=== PATIENT | male | born 1945 | race Caucasian/White ===

== ENCOUNTER → 2019-02-22 09:07 | Outpatient (CLI) | payer OTHER, SELFPAY ==
--- NOTE | 2019-02-22 | DI.NM.S_ITS ---
PROCEDURE: NM BONE SCAN WHOLE BODY RADIOPHARMACEUTICAL: 19.7 mCi Tc-99m MDP IV. INDICATIONS: RIGHT HIP PAIN TECHNIQUE: Delayed whole-body scintigrams were obtained approximately 3-4 hours after intravenous injection of radiotracer. Anterior and posterior views were acquired from vertex to feet. Additional left and right oblique views of the pelvis and hips were obtained. COMPARISON: None. FINDINGS: There is right hip arthroplasty. Low-level increased activity around right hip prosthesis is indistinguishable from postsurgical change. No scintigraphic findings to suggest listhesis loosening or infection. No lesions are identified in skull, sternum, clavicles, scapulae, ribs, bony pelvis, and visualized shafts of the long bones. There is low level increased uptake in cervical, thoracic and lumbar spine with distribution indistinguishable from degenerative disc and facet disease. There are foci of increased periarticular activity involving shoulders, sternoclavicular joints, wrists, hands, left hip, knees, ankles and feet, compatible with degenerative/arthritic changes. IMPRESSION: 1. Right hip arthroplasty with expected postsurgical change. 2. Degenerative/arthritic changes in spine and multiple peripheral joints. Dictated by: Hal Varela M.D. on 02/22/2019 at 17:30 Approved by: Hal Varela M.D. on 02/22/2019 at 18:30
== END ==
PROVIDERS: PCP Family Medicine; Visit Provider Orthopaedic Surgery
DX: M25.551 Pain in right hip (principal); M15.0 Primary generalized (osteo)arthritis; M47.9 Spondylosis, unspecified; Z96.641 Presence of right artificial hip joint
CPT/HCPCS: 78306; A9503

== ENCOUNTER → 2019-08-02 09:37 | Outpatient (CLI) | payer OTHER, SELFPAY ==
--- NOTE | 2019-08-02 | DI.MRI.S_ITS ---
PROCEDURE: MR LUMBAR SPINE WO CON INDICATIONS: Pain in right hip TECHNIQUE: Noncontrast sagittal T1 spin echo and T2 fast echo, sagittal STIR, axial T1 and T2 fast spin echo through the lumbar spine. In cases with scoliosis, additional coronal T2 fast spin echo may be performed. COMPARISON: None. FINDINGS: Image quality: Excellent. Alignment and Curvature: No plain films are available for comparison, for numbering purposes. Thus, for the purposes of this examination, 5 lumbar type vertebral bodies will be presumed, as denoted on the montage panel. This should be confirmed and correlated with plain films, prior to any lumbar spinal intervention. There is loss of normal lumbar lordosis. There is mild grade 1 retrolisthesis of L3 on L4. Mild grade 1 anterolisthesis of L4 on L5. Bone Marrow: Marrow is of normal overall signal. No acute vertebral body compression fractures. There is mild reactive signal within the endplates adjacent to the L2-L3 and L3-L4 intervertebral discs. Spinal Cord: Conus medullaris terminates at the L1-L2 disc space level. Visualized cord demonstrates normal signal and size. Paraspinous Soft Tissues: No paravertebral masses. L1-L2: Moderate disc desiccation. Mild diffuse disc bulge. Mild facet and ligament flavum hypertrophy. Mild epidural lipomatosis. Mild canal stenosis. No foraminal stenosis. L2-L3: Mild disc height loss. Moderate disc desiccation. Mild diffuse disc bulge. Mild facet and ligament flavum hypertrophy. Mild epidural lipomatosis. Mild canal stenosis. Mild right greater than left foraminal stenosis. L3-L4: Severe disc height loss and desiccation. Mild diffuse disc bulge. Mild facet and ligament flavum hypertrophy. Mild epidural lipomatosis. Mild canal stenosis. Moderate right and mild left foraminal stenosis. L4-L5: Moderate disc height loss and desiccation. Mild diffuse disc bulge. Moderate facet hypertrophy. Mild ligamentum flavum hypertrophy. Moderate canal stenosis. Moderate subarticular foraminal stenosis bilaterally. L5-S1: Moderate disc desiccation. Mild diffuse disc bulge. Mild bilateral facet hypertrophy. Mild canal stenosis. Mild subarticular foraminal stenosis bilaterally. IMPRESSION: 1. Multilevel degenerative disc and facet disease, as well as ligamentum flavum hypertrophy and epidural lipomatosis. 2. 5 lumbar type vertebral bodies were presumed for the current report. Plain films of the lumbar spine are recommended for confirmation, prior to any lumbar spinal intervention. 3. Multilevel canal stenoses, worst at L4-L5 where there is moderate canal stenosis. 5. Multilevel foraminal stenoses, worst at L3-L4 on the right, and L4-L5 bilaterally where there are moderate foraminal stenoses present. Dictated by: Carlos Patel M.D. on 08/02/2019 at 11:39 Approved by: Carlos Patel M.D. on 08/02/2019 at 11:43
== END ==
PROVIDERS: PCP Family Medicine; Visit Provider Orthopaedic Surgery
DX: M25.551 Pain in right hip (principal); M51.36 Other intervertebral disc degeneration, lumbar region; M51.37 Other intervertebral disc degeneration, lumbosacral region; M48.061 Spinal stenosis, lumbar region without neurogenic claudication; M48.07 Spinal stenosis, lumbosacral region; E88.2 Lipomatosis, not elsewhere classified
CPT/HCPCS: 72148

== ENCOUNTER → 2020-12-24 13:05 | Outpatient (CLI) | payer OTHER, SELFPAY ==
[2020-12-24 15:33] LABS: COVID19 -Nasal RAPID Negative (Negative)
== END ==
PROVIDERS: PCP Internal Medicine; Visit Provider Physical Medicine & Rehabilitation
DX: Z20.822 Contact with and (suspected) exposure to COVID-19 (principal)
CPT/HCPCS: 87635; C9803

== ENCOUNTER 2020-12-25 13:44 | Outpatient (CLI) | payer OTHER, SELFPAY ==
[2020-12-25] VITALS (8 sets, daily range): BP systolic 111–136; BP diastolic 56–75; PULSE 74–83; RESP 12–20; TEMP 36.3; O2SAT 95–97
--- NOTE | 2020-12-25 13:46 | DI.RAD.S_ITS ---
PROCEDURE: PAIN L/SI FACET INJ/BLK 1STL INDICATIONS: SPONDYLOSIS COMPARISON: None. FINDINGS: Fluoroscopic spot filming was performed to verify placement of spinal needles at the L3-L4, L4-L5 and L5-S1 level(s), as labeled on the films. Appropriate location(s) of the needle tip(s) was confirmed by injection of iodinated contrast. Dictated by: Aj Leblanc M.D. on 12/25/2020 at 16:05 Approved by: Aj Leblanc M.D. on 12/25/2020 at 16:08
[2020-12-25] MEDS: MIDAZOLAM 5 MG/5 ML VIAL IV (14:06)
[2020-12-25] MEDS: fentaNYL 100 MCG/2 ML INJ 50 MCG IV (14:06)
[2020-12-25] MEDS: IOPAMIDOL 15 ML VIAL 3 ML INJ (14:09)
[2020-12-25] MEDS: LIDOCAINE 1% 20 ML 10 ML INJ (14:09)
[2020-12-25] MEDS: BUPIVACAINE 0.5% (PF) VIAL 2 ML INJ (14:09)
[2020-12-25] MEDS: BETAMETHASONE 30 MG/5 ML MDV 12 MG INJ (14:10)
--- NOTE | 2020-12-25 14:20 | P.PCN_ITS ---
Date/Time/Diagnoses Date of procedure: 12/25/20 Time of procedure: 14:20 Pre-procedure diagnosis: 1. FACET ARTHROPATHY, 2. AXIAL LBP, 3. MULTILEVEL DDD Post-procedure diagnosis: same Procedure Notes Procedure: 1. FLUOROSCOPICALLY GUIDED CONTRAST CONTROLLED FACET JOINT INJECTIONS RIGHTL3/4, L4/5, L5/S1 Indications: Jamar is referred by Dr. Horan for treatment of Axial LBP Physician: Emmanuel Dean Total Fluoroscopy time (seconds): 8 Total sedation minutes: 10 Complications: none Procedure in detail & Post-procedure care: FINDINGS Multilevel Facet Arthropathy with Clinically significant axial LBP DESCRIPTION OF PROCEDURE Fluoroscopically guided, contrast-controlled right L4/5, L5/S1 facet joint injections. Following review of allergy and review of potential side effects and complications, including, but not necessarily limited to, infection, allergic reaction, local tissue breakdown, stroke, temporary or permanent nerve injury, paralysis, and possible , the patient indicated that the patient understood and agreed to proceed. An informed consent document was signed by the patient, witnessed by a nurse, and placed in the patient's chart. Additionally, other treatment options including medications, modalities, and physical therapy were reviewed with the patient. After review of previous anaesthesic history and IV conscious sedation the patient was deemed safe to proceed with today?s procedure with IV conscious sedation as ASA class II designation. Safety time-out was performed to confirm patient ID, procedure to be performed and site of procedure. IV sedation was accomplished with a combination of 2mg of Versed and 50mcg of Fentanyl was administered by the RN after DO order, titrated to patient comfort during the course of the procedure while the patient remained responsive to all verbal commands. In the prone position, following sterile prep and drape of the lumbar region, the posterior aspect of the right L3/4, L4/5, L5/S1 facet joints were identified fluoroscopically. The skin was anesthetized via a 25-gauge 1.5-inch needle with 1% lidocaine solution into the corresponding facet joints. At this point, a 22- gauge 3.5-inch spinal needle was atraumatically introduced and advanced under fluoroscopic guidance into the corresponding facet joints. Following negative aspiration, injections of approximately 0.2-cc of Isovue 200 confirmed interarticular placement without vascular uptake. Radiological data, including multiple fluoroscopic views of the lumbosacral spine, reveal a spinal needle at the right L3/4, L4/5, L5/S1 facet joints. Subsequent views show flow of contrast material both superiorly and inferiorly within the joint space without vascular or intrathecal uptake. At this point, a total of 0.5cc including a mixture of 0.25cc Marcaine and 0.25cc betamethasone was injected without complication into each of the corresponding facet joints. The procedure tolerated the procedure well without signs or symptoms of complications prior to transfer to the recovery area continued monitoring without incident. The patient was then transferred to the recovery area where they were observed for an appropriate period of time after the injection. The patient reported a VAS score of 7 prior to the procedure and a post-procedure VAS of 0. POST OP INSTRUCTIONS The patient was provided a Pain Log to continue to record their response to the target-specific procedure prior to follow-up visit with their referring physician. Additionally, specific post-injection care instructions and a contact number to our office were provided if concerns arise regarding possible complications associated with the procedure are suspected.
== END 2020-12-25 14:41 | disposition home or self-care (01) ==
LOC: RAD 13:44
PROVIDERS: PCP Internal Medicine; Referring Provider Physical Medicine & Rehabilitation; Visit Provider Physical Medicine & Rehabilitation
DX: M47.816 Spondylosis without myelopathy or radiculopathy, lumbar region (principal); M47.817 Spondylosis without myelopathy or radiculopathy, lumbosacral region; M51.36 Other intervertebral disc degeneration, lumbar region; M51.37 Other intervertebral disc degeneration, lumbosacral region; M54.5 Low back pain
CPT/HCPCS: 64493; 64494; 64495; 99152; J0702; J2250; J3010

== ENCOUNTER → 2021-03-13 12:46 | Outpatient (CLI) | payer OTHER, SELFPAY ==
--- NOTE | 2021-03-13 12:48 | DI.RAD.S_ITS ---
PROCEDURE: XR LUMBAR SPINE MIN 4V INDICATIONS: pain TECHNIQUE: 5 views of the lumbar spine acquired, including flexion and extension views. COMPARISON: None. FINDINGS: Bones: The lumbar spine has multilevel degenerative changes with anterior osteophytes at multiple levels. There is facet arthrosis spanning from L3 through S1. No vertebral body height loss. There is leftward curvature of the lumbar spine consistent with level scoliosis. Both sacroiliac joints have degenerative changes. The symphysis pubis and left hip have degenerative changes. Status post bipolar right hip replacement. Disc space narrowing is seen at L1-2, L2-3, and L3-4. Grade 1 anterolisthesis of L4-5 likely due to facet arthrosis. Soft tissues: Overlying bowel gas pattern is normal. No suspicious soft tissue calcifications. IMPRESSION: Multilevel lumbar spondylosis as above. Dictated by: Pasquale Medina M.D. on 03/13/2021 at 14:26 Approved by: Pasquale Medina M.D. on 03/13/2021 at 14:28
--- NOTE | 2021-03-13 15:18 | DI.RAD.S_ITS ---
PROCEDURE: XR HUMERUS LT 2V INDICATIONS: left humeral pain with hx of Fx TECHNIQUE: 2 views of the humerus were acquired. COMPARISON: None. FINDINGS: Bones: Prior fracture deformity of the mid left humeral shaft. No acute fracture. Degenerative change at the shoulder. No suspicious bony lesions. Soft tissues: No suspicious soft tissue calcifications. IMPRESSION: Fracture deformity of the mid left humeral shaft. Dictated by: Armen Delgado M.D. on 03/13/2021 at 15:49 Approved by: Armen Delgado M.D. on 03/13/2021 at 15:51
== END ==
PROVIDERS: PCP Internal Medicine; Referring Provider Physical Medicine & Rehabilitation; Visit Provider Physical Medicine & Rehabilitation
DX: S42.302A Unspecified fracture of shaft of humerus, left arm, initial encounter for closed fracture (principal); M43.16 Spondylolisthesis, lumbar region; M47.816 Spondylosis without myelopathy or radiculopathy, lumbar region; M51.9 Unspecified thoracic, thoracolumbar and lumbosacral intervertebral disc disorder; M99.79 Connective tissue and disc stenosis of intervertebral foramina of abdomen and other regions; M17.0 Bilateral primary osteoarthritis of knee
CPT/HCPCS: 72110; 73060; 99215

== ENCOUNTER → 2021-08-23 11:06 | Outpatient (CLI) | payer OTHER, SELFPAY ==
--- NOTE | 2021-08-23 11:12 | DI.CT.S_ITS ---
PROCEDURE: CT UE LT WO CON INDICATIONS: Primary osteoarthritis, left shoulder TECHNIQUE: Noncontrast 1-1.5 mm thick sections acquired from the acromioclavicular joint to the inferior scapula, with coronal and sagittal reformatting. COMPARISON: [facility], CR, XR SHOULDER 2+ VIEWS LEFT, 07/04/2021, 10:56. FINDINGS: Image quality: Excellent. Bones: No acute, displaced fracture or dislocation. A nutrient foramen is seen in the mid clavicle. Mild degeneration of the AC joint. Moderate to advanced joint space narrowing of the glenohumeral articulation with large osteophytes about the articulation. An intra-articular body is seen within the inferior axillary recess. Remote fracture deformity of the mid humerus. Soft tissues: No significant abnormality. IMPRESSION: Glenohumeral joint arthrosis as detailed above. Dictated by: Bashir Chaves M.D. on 08/23/2021 at 12:41 Approved by: Bahsir Chaves M.D. on 08/23/2021 at 12:45
== END ==
PROVIDERS: PCP Internal Medicine; Referring Provider Orthopaedic Surgery; Visit Provider Orthopaedic Surgery
DX: M19.012 Primary osteoarthritis, left shoulder (principal)
CPT/HCPCS: 73200

== ENCOUNTER → 2021-08-26 10:21 | Outpatient (CLI) | payer OTHER, SELFPAY ==
[2021-08-26 11:58] LABS: COVID19 -Nasal RAPID Negative (Negative)
== END ==
PROVIDERS: PCP Internal Medicine; Visit Provider Physical Medicine & Rehabilitation
DX: Z20.822 Contact with and (suspected) exposure to COVID-19 (principal)
CPT/HCPCS: 87635; C9803

== ENCOUNTER 2021-08-27 10:17 | Outpatient (CLI) | payer OTHER, SELFPAY ==
[2021-08-27] VITALS (8 sets, daily range): BP systolic 110–135; BP diastolic 56–69; PULSE 64–75; RESP 14–20; TEMP 36.6; O2SAT 94–99
--- NOTE | 2021-08-27 10:20 | DI.RAD.S_ITS ---
PROCEDURE: PAIN L/SI FACET INJ/BLK 1STL INDICATIONS: SPONDYLOSIS COMPARISON: [facility], CR, XR LUMBAR SPINE MIN 4V, 03/13/2021, 12:42. FINDINGS: Fluoroscopic spot filming was performed to verify placement of spinal needles at the L3, L4, L5 and S1 level(s), as labeled on the films. Appropriate location(s) of the needle tip(s) was confirmed by injection of iodinated contrast. IMPRESSION: Fluoroscopy for pain management. Dictated by: Hal Varela M.D. on 08/27/2021 at 11:31 Approved by: Hal Varela M.D. on 08/27/2021 at 11:31
[2021-08-27] MEDS: fentaNYL 100 MCG/2 ML INJ 50 MCG IV (10:40)
[2021-08-27] MEDS: MIDAZOLAM 5 MG/5 ML VIAL IV (10:40)
[2021-08-27] MEDS: BUPIVACAINE 0.5% (PF) VIAL 5 ML INJ (10:42)
[2021-08-27] MEDS: IOPAMIDOL 15 ML VIAL 3 ML INJ (10:43)
[2021-08-27] MEDS: LIDOCAINE 1% 20 ML 10 ML INJ (10:43)
--- NOTE | 2021-08-27 10:54 | P.PCN_ITS ---
Date/Time/Diagnoses Date of procedure: 08/27/21 Time of procedure: 10:54 Pre-procedure diagnosis: 1. FACET ARTHROPATHY Post-procedure diagnosis: same Procedure Notes Procedure: 1. Right L3, L4, L5 and S1 MB BLOCKS Indications: Jamar is referred by Dr. Horan for treatment of Right Axial LBP. Physician: Emmanuel Dean Total Fluoroscopy time (seconds): 7 Total sedation minutes: 10 Complications: none Procedure in detail & Post-procedure care: DESCRIPTION OF PROCEDURE Fluoroscopically guided, contrast-controlled right L3, L4, L5 and S1 medial branch blocks with 0.5cc of 0.5% Marcaine. Following review of allergy and review of potential side effects and complications, including, but not necessarily limited to, infection, allergic reaction, local tissue breakdown, nerve injury, paralysis, stroke and possible , the patient indicated that the patient understood and agreed to proceed. An informed consent document was signed by the patient, witnessed by a nurse, and placed in the patient's chart. After review of previous anaesthesic history and IV conscious sedation the patient was deemed safe to proceed with today?s procedure with IV conscious sedation as ASA class II designation. Safety time-out was performed to confirm patient ID, procedure to be performed and site of procedure. IV sedation was accomplished with a combination of 3mg of Versed and 50mcg of Fentanyl was administered by the RN after DO order, titrated to patient comfort during the course of the procedure while the patient remained responsive to all verbal commands In the prone position, following sterile prep and drape of the lumbar region, the right L3, L4, L5 and S1 anatomical location of the medial branch of the dorsal ramus was identified fluoroscopically. Subsequently an anesthetic skin wheal using 1% lidocaine solution was initiated at each of the anatomical spots. Subsequently then a 22-gauge 3.5-inch spinal needle was atraumatically introduced and advanced under fluoroscopic guidance at each of the corresponding sites at the right L3, L4, L5 and S1 MB. After negative aspiration, 0.2 cc of Isovue 200 was injected, confirming placement without vascular or intrathecal uptake. Subsequently then 0.5 cc of 0.5% Marcaine solution was injected at each of the corresponding sites at the right L3, L4, L5 and S1 medial branch locations. The patient tolerated the procedure well without signs or symptoms of complications. The procedure tolerated the procedure well without signs or symptoms of complications prior to transfer to the recovery area continued monitoring without incident. Post-procedure, the patient was monitored initiating provocative activities to measure the amount of relief from block of the facetogenic pain. The patient reported a VAS of 7 prior to the procedure and a post-procedure VAS of 1. It has been a pleasure to assist in the diagnostic and therapeutic care of your patient. POST OP INSTRUCTIONS The patient was provided with a Pain Log to complete over the next several hours and subsequent days prior to the patient's follow up with the ordering physician. If the patient has business management consultant relief to the solution applied, then they may be a candidate for medial branch rhizotomy. The patient is aware, was provided, once again, with a Pain Log and will follow up with the referring physician for review and clinical correlation.
== END 2021-08-27 11:17 | disposition home or self-care (01) ==
PROVIDERS: PCP Internal Medicine; Referring Provider Physical Medicine & Rehabilitation; Visit Provider Physical Medicine & Rehabilitation
DX: M47.816 Spondylosis without myelopathy or radiculopathy, lumbar region (principal); M47.817 Spondylosis without myelopathy or radiculopathy, lumbosacral region
CPT/HCPCS: 64493; 64494; 64495; 99152; J2250; J3010

== ENCOUNTER → 2022-06-16 11:26 | Outpatient (CLI) | payer OTHER, SELFPAY ==
[2022-06-16 12:44] LABS: COVID19 -Nasal RAPID Negative (Negative)
== END ==
PROVIDERS: PCP Internal Medicine; Referring Provider Orthopaedic Surgery; Visit Provider Orthopaedic Surgery
DX: Z20.822 Contact with and (suspected) exposure to COVID-19 (principal)
CPT/HCPCS: 87635

== ENCOUNTER 2022-06-18 08:57 | Day surgery (SDC) | payer OTHER, SELFPAY ==
[2022-06-11 08:24] VITALS: BMI 30.9
[2022-06-18] VITALS (11 sets, daily range): BP systolic 104–145; BP diastolic 53–75; PULSE 66–88; RESP 12–18; TEMP 35.9–36.6; O2SAT 94–98; BMI 30.9
--- NOTE | 2022-06-18 06:00 | DI.RAD.S_ITS ---
PROCEDURE: XR SHOULDER LT 1V INDICATIONS: TSA TECHNIQUE: 1 views of the shoulder were acquired. COMPARISON: None. FINDINGS: Bones: Patient is status post left total shoulder arthroplasty. Shoulder alignment is anatomic. No fractures or dislocations. No suspicious bony lesions. Visualized ribs appear intact. Soft tissues: Expected postsurgical changes are noted in lateral shoulder soft tissue. No suspicious soft tissue calcifications. IMPRESSION: Postop changes from left shoulder arthroplasty with anatomic shoulder alignment. Dictated by: Dave Durand M.D. on 06/18/2022 at 14:04 Approved by: Dave Durand M.D. on 06/18/2022 at 14:05
[2022-06-18] MEDS: ACETAMINOPHEN 325 MG TABLET 975 MG PO (09:48)
[2022-06-18] MEDS: PREGABALIN 75 MG CAPSULE PO (09:52)
[2022-06-18] MEDS: CELECOXIB 200 MG CAPSULE PO (09:52)
[2022-06-18] MEDS: LACTATED RINGERS 1,000 ML 42 ML IV ×2 (09:53→12:20)
--- NOTE | 2022-06-18 10:37 | PM.PREOP ---
Pre-operative Note COVID-19 COVID-19 status: Negative Result date/Date tested (Pos, Neg/Pending): 06/16/22 Interval Note History & Physical reviewed/Exam performed by Physician: Yes Changes to H&P: No
--- NOTE | 2022-06-18 11:15 | SUR.PREOP ---
Block start time 1050 . Monitoring initiated and maintained throughout procedure. Oxygen and medications given per anesthesiologist instructions. Time-out performed @ 10:55. Patient remained stable throughout procedure, no adverse reactions noted. Block end time 11:09.
[2022-06-18] MEDS: CEFAZOLIN 2 GM/100 ML PREMIX 100 ML IV ×2 (11:32→18:17)
[2022-06-18] MEDS: TRANEXAMIC ACID 1,000 MG VIAL 2000 MG INJ ×2 (11:43→13:01)
--- NOTE | 2022-06-18 11:49 | SUR.OPER ---
Beach chair with Ashwin/Art shoulder positioner. Lower body on padded OR bed. Head in foam padded head cradle, secured with straps. Non-operative arm secured <90 degrees abduction. Pillow under knees. Safety belt at thigh. Cloth tape over blanket over lower legs.
[2022-06-18] MEDS: BUPIVACAINE 0.5% W/ EPI (PF) 30 ML VIAL INJ (12:03)
[2022-06-18] MEDS: THROMBIN (RECOMBINANT) 5,000 UNIT VIAL 5000 UNIT TOP (12:03)
--- NOTE | 2022-06-18 13:40 | PM.OP.1 ---
Operative Date/Time/Diagnoses Date of procedure: 06/18/22 Time of procedure: 13:40 Pre-op diagnosis: Left shoulder osteoarthritis Post-op diagnosis: same Procedure & Clinicians Procedure: Left total shoulder replacement Same procedure as scheduled: Yes Indications: The patient has had progressively worsening left shoulder pain with radiographic changes consistent with arthritis. Non-operative management has failed and the patient has requested total shoulder replacement. The risks, benefits and alternatives to surgery were discussed with the patient prior to proceeding. Risks discussed included, but were not limited to, failure to relieve pain, stiffness, infection, nerve damage, deep venous thrombosis, pulmonary embolism, stroke, coma, heart attack, permanent paralysis and , as well as the potential need for eventual revision of the prosthetic. Surgeon: Troy Shirley Setter Cold Rolling Machine: Savage Shipley Click Yes if Unassisted: No Anesthesia Type: General, Peripheral nerve block and Local Operative Notes Findings: Severe osteophyte formation and end-stage osteoarthritis of the glenohumeral joint. Closure Type: primary Specimen(s): none sent Prosthetic devices, grafts, tissues, transplants, or devices: Implants used in this procedure manufactured by the [employer] and included a canal sparing prosthetic with a size 2 canal sparing stem, a 54 mm all polyethylene pegged E +glenoid and a 54 mm x 18 mm neutral humeral head. Applied: implant(s) Estimated Blood Loss (mL): 150 Blood products transfused: none Procedure in detail: The patient was seen in the pre-operative area, where the patient identified the left shoulder as the operative site and this was marked with my initials. The patient received pre-operative antibiotics, underwent an interscalene block, and was taken to the operating room and placed on the operative table in the supine position. After satisfactory anesthesia, a full ?time out? was performed. The patient was repositioned in the ?beach chair? position using a dedicated positioner. All pressure points were well padded, and the knees were slightly bent to prevent tension on the sciatic nerves. The left arm was prepared from the fingers to the base of the neck with ChloroPrep in the usual fashion and draped through sterile drapes. An approximately 15 cm incision was created, starting at the clavicle above the coracoid process and extended towards the deltoid insertion. The deltopectoral interval was used to access the shoulder. The cephalic vein was unfortunately damaged during the approach and ligated. A self retaining retractor was placed. The upper centimeter of the pectoralis major tendon was released. The ?three sisters? were identified and cauterized. The axillary nerve was palpated and protected throughout the case. The biceps was released from its groove and tenodesed over the top of the pectoralis major tendon. The subscapularis was released from the lesser tuberosity with a subscapularis peel and tagged for later repair. The shoulder was dislocated and a proximal humeral osteotomy was created using the insertion of the rotator cuff is a guide. We could not use a guide based on the deformity of the patient's humeral fracture which altered his retroversion and angulation. The large osteophyte was trimmed. The humeral head was sized and a guide pin placed through the center of a trial humeral head. The stepped Reamer was then used for the proximal humeral metaphysis. A size 2 broach was placed and a humeral protector attached to the broach. We then removed the self-retaining retractor and placed retractors to access the glenoid. The subscapularis was released with a ?360 degree release? with care being taken to protect the axillary nerve with the inferior portion of this procedure. The remnant of labrum and biceps stump were removed. The appropriate size reamer was chosen with the glenoid sizer, and the guide pin placed. The glenoid was appropriately reamed. The guide for the peripheral holes was used and the center hole enlarged. The trial glenoid was placed with good stability. We then cemented the final implant into place after irrigating the peg holes and drying them with thrombin-soaked Gelfoam. We returned our attention to the humerus, a trial humeral head was applied and a trial reduction performed. Stability was checked with 50% posterior translation with spontaneous reduction, external rotation at the side to 45? with the subscapularis held in the repaired position and internal rotation to approximately 70?.. This was felt to be satisfactory and the appropriate implants were opened. Five holes were drilled along the humeral osteotomy and #2 Ethibond sutures placed for eventual subscapularis repair. The humeral prosthetic was impacted into the humerus after threading the sutures through the anterior ring. The humeral head was applied when the stem was still slightly proud and impacted to both seat the head and fully seat the stem. The joint was relocated one final time. The joint was irrigated and the subscapularis repaired to the previously placed sutures using Minesh-Scott sutures. The top of the subscapularis was closed to the leading edge of the supraspinatus with a figure of 8 #2 Ethibond to close the rotator interval. The deltopectoral interval was closed with interrupted 0 Vicryl. The subcutaneous layer was closed with 3-0 Vicryl, and the skin with a running 3-0 V-Lock suture and Dermabond. An Aquacel Ag dressing was applied, the patient?s arm was placed in a sling, and the patient was taken to recovery having tolerated the procedure well. The services of Mr. Shipley were required as a skilled bilingual administrative assistant during this procedure to provide exposure especially during the glenoid implantation which is extremely difficult. This procedure could not have been completed without the services of a skilled bilingual administrative assistant. Complications: none Post-operative Condition: stable Disposition: PACU Plan for aftercare: The patient will be maintained in the hospital overnight. He will be allowed to use his arm in front of his body below shoulder level to lift 1-2 lb. Will then be advanced per a total shoulder replacement physical therapy protocol. Likely discharge tomorrow.
[2022-06-18] MEDS: HYDROMORPHONE 2 MG INJ IV (13:42)
[2022-06-18] MEDS: LACTATED RINGERS 1,000 ML 100 ML IV (14:48)
[2022-06-18] MEDS: OXYCODONE IR 5 MG TABLET PO ×3 (14:48→22:14)
--- NOTE | 2022-06-18 16:14 | PC.NURSE ---
Pt to room 209 via bed from PACU. Pt is awake and oriented. States pain is 4/10 to shoulder. Ice pack to left shoulder and sling in place. Oriented Pt to room, call light, bed controls, and tv controls. Gave Pt water to drink and a snack to eat. SCD's on and running. IVF infusing as ordered.
[2022-06-18] MEDS: ACETAMINOPHEN 325 MG TABLET 650 MG PO ×2 (17:12→23:58)
[2022-06-18] MEDS: ASPIRIN EC 81 MG TABLET PO (20:05)
[2022-06-18] MEDS: ATORVASTATIN 20 MG TABLET 10 MG PO (20:05)
[2022-06-18] MEDS: TAMSULOSIN 0.4 MG CAPSULE PO (20:05)
[2022-06-18] MEDS: DOCUSATE 100 MG CAPSULE PO (20:05)
--- NOTE | 2022-06-18 22:53 | PC.NURSE ---
Addendum entered by Luma Louis R.N. 06/19/22 05:57: Reports no numbness in left UE at this time and states it sure makes a difference with the block wearing off. Medicated with scheduled Tylenol + oxycodone and ice pack applied for complaint of 6/10 pain. Original Note: Patient is alert and oriented. Breath sounds CTA with RA sat of 97%. HRR. Denies nausea. BT hypoactive but states he has passed flatus. Has chronic urinary retention (takes Flomax) and urgency with urination but denies dysuria. Is able to turn himself in bed and gets out of bed with SBA. Aquacel dressing to left shoulder is CDI. Still has numbness in left UE especially in left thumb and forefinger; strong radial pulse and good capillary refill; has arm in sling. Wearing bilateral calf SCD's. Complained of 4/10 pain in left UE and was medicated with oxycodone at 2214 and has ice to area. Fall risk score is moderate and bed alarm is activated.
[2022-06-19 00:05] VITALS: BP 109/62; PULSE 74; RESP 17; TEMP 36.5; O2SAT 96
[2022-06-19] MEDS: LACTATED RINGERS 1,000 ML 100 ML IV ×2 (01:35→17:16)
[2022-06-19] MEDS: CEFAZOLIN 2 GM/100 ML PREMIX 100 ML IV (03:20)
[2022-06-19 03:45] VITALS: BP 101/52; PULSE 71; RESP 18; TEMP 36.3; O2SAT 93
[2022-06-19] MEDS: ACETAMINOPHEN 325 MG TABLET 650 MG PO ×4 (05:49→23:57)
[2022-06-19] MEDS: OXYCODONE IR 5 MG TABLET PO ×2 (05:49→17:54)
[2022-06-19] MEDS: PANTOPRAZOLE DR 20 MG TABLET PO (05:50)
[2022-06-19 06:09] LABS: Hematocrit 34.5 % (41-53)
[2022-06-19] MEDS: HYDROMORPHONE 2 MG TABLET PO (07:31)
--- NOTE | 2022-06-19 07:58 | PM.DS.1 ---
History of Present Illness History of Present Illness Date Patient Seen: 06/19/22 Time Patient Seen: 07:58 Chief complaint: Left Total shoulder Artroplasty Narrative: The history and physical is contained in the chart previously completed note. Please refer to that note for this information. Discharge Providers Provider Date of admission: June 18, 2022 Discharge Date: 06/19/22 Primary care physician: Sauarbh Horan MD Consults: 06/18/22 14:10 Consult to Discharge Planning Routine Comment: Consult to Physical Therapy Evaluate & Treat Comment: Physician Instructions: pendulums, PROM 90 FF, 0 ER, 0 abd, IR to body Discharge provider: Troy Shirley MD Summary Hospital Course Discharge Diagnosis: 1. Left shoulder osteoarthritis 2. Post hemorrhagic anemia Hospital Course: The patient was admitted to the hospital and taken directly to the operating room on June 18, 2022 where he underwent a left total shoulder replacement with no complications. On postoperative day 1 he had satisfactory pain control. He had a mild, anticipated post hemorrhagic anemia. At the time of this dictation it is anticipated he will be ready to go home later this morning. Status at Discharge Cognitive/behavioral status at discharge: at baseline, oriented Functional status at discharge: independent ambulation Overall status at discharge: patient is progressing back to baseline Time Spent with Patient Time spent: Less than 30 minutes Exam Vital Signs (past 8 hours): - 06/19/22 00:05 06/19/22 03:45 Temperature 97.7 F 97.3 F L Pulse Rate 74 71 Respiratory Rate 17 18 Blood Pressure 109/62 101/52 L Pulse Oximetry 96 93 Oxygen Flow Rate 0 0 Oxygen Delivery Method Room Air Oxygen Flow Rate 0 Narrative Exam Narrative: Left shoulder wound is dressed with no drainage on the bandage. Light touch is intact in the radial, ulnar, median, muscular cutaneous and axillary nerve distribution. He can extend his thumb, abduct his thumb, abduct his fingers and can fire his biceps and deltoid. 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 He has a mild, anticipated post hemorrhagic anemia which should resolve spontaneously. Plan of Treatment: Discharge today. Follow up at my office in 10-14 days. Prescriptions for oxycodone have been called in for pain control. He has been instructed to continue the use of Tylenol and Celebrex for additional pain relief and to use low-dose aspirin for DVT prophylaxis. Discharge Plan Discharge Plan Patient Disposition: Home Discharge orders & Medications Discharge Orders: Discharge (Order); Ordered 06/19/22 Ordered By: Troy Shirley Prescriptions: New aspirin 81 mg Tablet,Delayed Release (Dr/Ec) 81 mg PO BID Qty: 84 0RF oxycodone 5 mg Tablet 5 mg PO Q4H PRN (Reason: Pain, Moderate (4-6)) Qty: 40 0RF Continued tamsulosin 0.4 mg capsule 0.4 mg PO BEDTIME atorvastatin 10 mg tablet 10 mg PO BEDTIME cholecalciferol (vitamin D3) 50 mcg (2,000 unit) capsule 50 mcg PO DAILY acetaminophen [Tylenol Extra Strength] 500 mg tablet 1,000 mg PO Q6H PRN (Reason: Pain) Ultra CoQ10 75 mg capsule 75 mg PO DAILY omeprazole 20 mg capsule,delayed release(DR/EC) 20 mg PO DAILY Label Comments: Take one capsule by mouth once daily for indigestion celecoxib [Celebrex] 200 mg capsule 200 mg PO DAILY Qty: 90 2RF trazodone 50 mg tablet 50 mg PO BEDTIME MDD 2 tabs PO HS PRN (Reason: insomnia) Qty: 60 2RF Discontinued aspirin [Adult Low Dose Aspirin] 81 mg tablet,delayed release (DR/EC) 81 mg PO BEDTIME Follow up/Referrals: Saurabh Horan MD [Primary Care Provider] - Troy Shirley MD [Physician] - As previously scheduled (Follow up with Dr Shirley on 06/30/2022 @ 1:00 pm at [facility] office in [place].) Diet/Activity/Treatments Diet: Diet as Tolerated and Regular Activity: You may use your left arm in front of your body to lift 1-2 lb. You may do pendulum exercises. Cold/Heat Therapy: You may apply ice for 15 minutes every hour as needed to the left shoulder for pain control. Skin/Wound/Dressing Care Report to your healthcare provider any signs of infection, such as:: chills, fever, night sweats, increased pain, unusual drainage and unusual redness Dressing: Leave the dressing in place until your follow-up. You may shower with the dressing in place. If the central strip of the dressing becomes saturated with either water or blood, please call the office. Visit Report/Discharge Packet Instructions: DI for Shoulder Replacement Stand Alone Forms: Surgery Discharge Discharge Data Primary Care Provider: Saurabh Horan Attending Provider: Troy Shirley
[2022-06-19 08:25] VITALS: BP 113/59; PULSE 75; RESP 16; TEMP 35.9; O2SAT 94
[2022-06-19] MEDS: CHOLECALCIFEROL (VITAMIN D3) 1,000 UNIT TABLET 2000 UNIT PO (09:24)
[2022-06-19] MEDS: CELECOXIB 200 MG CAPSULE PO (09:24)
[2022-06-19] MEDS: DOCUSATE 100 MG CAPSULE PO ×2 (09:24→20:30)
[2022-06-19] MEDS: ASPIRIN EC 81 MG TABLET PO ×2 (09:24→20:30)
[2022-06-19] MEDS: OXYCODONE IR 10 MG TABLET PO ×3 (09:24→23:55)
[2022-06-19] MEDS: SODIUM CHLORIDE 0.9% FLUSH 10 ML IV (09:25)
--- NOTE | 2022-06-19 09:51 | PT.IIE ---
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 Enlarged prostate Facet arthropathy, lumbar 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 HLD (hyperlipidemia) Left humeral fracture Osteoarthritis Spondylolisthesis at L4-L5 level Physical Therapy Inpatient Evaluation/Re-Eval M1 PT/OT-IP Prior Functional Status Start: 06/19/22 12:47 Freq: NEEDED Status: Active Protocol: Document 06/19/22 09:51 AB (Rec: 06/19/22 12:58 AB [email or web address]) Medical Review Prior Functional Status Medical History Reviewed Yes Communication able to make needs known Mobility and Gait pt stated that he is independent with all mobilities and ambulation without AD Social History Household Members spouse Living Arrangements House Number of Floors (Floors) One Floor Number of Stairs To Enter/Railing? no steps to enter Home Environment High Toilet,Walk in Shower, Built-In Shower Seat Home Equipment Hand Held Shower M2 PT-IP Current Condition Start: 06/19/22 12:47 Freq: NEEDED Status: Active Protocol: Document 06/19/22 09:51 AB (Rec: 06/19/22 12:58 AB [email or web address]) Physical Therapy Current Condition Current Condition Evaluation Date 06/19/22 Treatment Diagnosis s/p L TSA; difficulty in walking Onset Date 06/18/22 M3 PT-IP Subjective Start: 06/19/22 12:47 Freq: NEEDED Status: Active Protocol: Document 06/19/22 09:51 AB (Rec: 06/19/22 12:58 AB [email or web address]) Subjective Physical Therapy Visit Type Type Initial Evaluation Visit Start Time 09:51 Visit Stop Time 10:18 Total Visit Minutes 27 Number of PRESCHOOL TEACHER AIDE Visits 0 Physical Therapy Visit Comments Patient Comments agreeable to do PT Therapy Pain Assessment Pain When Pain Assessed At Rest Pain Present Pain Present Pain Reported Location left shoulder Intensity 7 Scale Used Numeric (0 - 10) Pain Management Techniques Distraction,Modification of Treatment,Re-positioning, Timing of Activity with Medications M4 PT-IP Mobility and Gait Start: 06/19/22 12:47 Freq: NEEDED Status: Active Protocol: Document 06/19/22 09:51 AB (Rec: 06/19/22 12:58 AB [email or web address]) PT-Bed Mobility Assessment Supine to Sit Supine to Sit Standby Assistance Sit to Supine Sit to Supine Standby Assistance PT-Transfer Assessment Comments Mobility Comments educated pt on L shoulder precautions, weight bearing restriction, UE exercises. BP in supine 119/70 ID: [id number] completed supine to sit SBA. able to sit on EOB SBA. c/o dizziness. BP checked: 106/52 ID: [id number]. Pt sat on EOB for a few more minutes. Assisted pt with sling management and attempted UE exercises but pt continues to be dizzy. BP checked : 96/44 ID: [id number]. nurse aware. pt stated that he needs to lay back in bed due to dizziness. completed sit to supine SBA.BP checked: 98/ 43 ID : [id number]. positioned pt in bed. call light and table placed withinn reach. BP checked again at end of PT session: 102/42 ID: [id number]. PT-Balance Assessment Sitting Balance and Reactions Static Sitting Balance Ability Normal Dynamic Sitting Balance Ability Normal M5 PT-IP Objective Assessments Start: 06/19/22 12:47 Freq: NEEDED Status: Active Protocol: Document 06/19/22 09:51 AB (Rec: 06/19/22 12:58 AB [email or web address]) Orientation Orientation/Cognition Level of Alertness Alert Orientation Name,Place,Situation Language Function Ability No Deficits Noted Safety Awareness Decreased Safety Awareness Memory Description Short Term Impaired Gross Range of Motion Lower Extremity ROM Assessment Within Functional Limits Strength Lower Extremity Strength Assessment Within Functional Limits Muscle Tone Muscle Tone WNL Yes M6 PT-IP Treatment Start: 06/19/22 12:47 Freq: NEEDED Status: Active Protocol: Document 06/19/22 09:51 AB (Rec: 06/19/22 12:58 AB [email or web address]) Physical Therapy Treatment Education Education Provided Precautions,Weight Bearing Status,Post-Op Packet,Safety M7 PT-IP Assessment and Plan Start: 06/19/22 12:47 Freq: NEEDED Status: Active Protocol: Document 06/19/22 09:51 AB (Rec: 06/19/22 12:58 AB [id number]) PT Summary Assessment and Plan Potential Rehabilitation Potential Good Status of Condition at Evaluation Evolving Summary Impairments Pain,ROM,Strength,Balance, Coordination,Sensation,Tone, Cognition,Bed Mobility, Transfers,Gait,Activity Tolerance Assessment Summary pt with decrease in BP in sitting on EOB : 96/44 and ID [id number] with c/o dizziness and unable to tolerate much activity. Pt plans to go home and spouse to assist. Caregiver training will be conducted when appropriate. will continue to assess progress. Goals Bed Mobility Goal Independent Transfer Goal Independent Gait Goal Independent Gait Distance 200 Days to Meet Goals 10 Frequency of Treatment Frequency Of Treatment Twice a Day Treatment Plan Physical Therapy Treatment Plan Bed Mobility Training,Transfer Training,Gait Training, Therapeutic Exercise,Balance Retraining,Post Op Education, Discharge Planning,Hot or Cold Pack,Neuromuscular Re-ed, Coordination Retraining,Manual Therapy Precautions Shoulder Precautions Sling,PROM,Internal Rotation to Body,No External Rotation, No Abduction,Forward Flexion to 90 degrees,Pendulums Weight Bearing Status Weight Bearing Status Non-Weight Bearing Allowed Weight Bearing Amount (enter % LUE NWB or #) (%) Recommendations To Nursing Amount of Assist Needed PT/OT Assist Only Discharge Recommendations PT Discharge Recommendations Home with Assistance, Outpatient PT Transportation Needs at Discharge Private Vehicle,Wheelchair/ Cabulance
[2022-06-19] MEDS: TRAMADOL 50 MG TABLET PO ×2 (11:35→21:58)
[2022-06-19 11:41] VITALS: BP 145/73; PULSE 62; RESP 16; TEMP 36.6; O2SAT 97
--- NOTE | 2022-06-19 13:40 | PT.IPTN ---
Current Diagnoses Primary osteoarthritis, left shoulder (06/18/22) Surgery Performed Operation Date: 06/18/22 11:00 Actual Procedures p Total Shoulder Arthroplasty(Left) - Troy Shirley MD Physical Therapy Treatment Note M2 PT-IP Current Condition Start: 06/19/22 12:47 Freq: NEEDED Status: Active Protocol: Document 06/19/22 09:51 AB (Rec: 06/19/22 12:58 AB [email or web address]) Physical Therapy Current Condition Current Condition Evaluation Date 06/19/22 Treatment Diagnosis s/p L TSA; difficulty in walking Onset Date 06/18/22 M3 PT-IP Subjective Start: 06/19/22 12:47 Freq: NEEDED Status: Active Protocol: Document 06/19/22 13:40 AB (Rec: 06/19/22 16:55 AB [email or web address]) Subjective Physical Therapy Visit Type Type Treatment Note Visit Start Time 13:40 Visit Stop Time 14:25 Total Visit Minutes 45 Number of PRIMARY SPECIAL EDUCATOR Visits 0 Physical Therapy Visit Comments Patient Comments agreeable to do PT Therapy Pain Assessment Pain When Pain Assessed At Rest Pain Present Pain Present Pain Reported Location left shoulder Intensity 6 Scale Used Numeric (0 - 10) Pain Management Techniques Apply Cold,Distraction, Modification of Treatment,Re- positioning,Timing of Activity with Medications M4 PT-IP Mobility and Gait Start: 06/19/22 12:47 Freq: NEEDED Status: Active Protocol: Document 06/19/22 13:40 AB (Rec: 06/19/22 16:55 AB [email or web address]) PT-Bed Mobility Assessment Supine to Sit Supine to Sit Standby Assistance PT-Transfer Assessment Sit to and From Stand Sit to and from Stand Contact Guard Assistance,1 Person Assistance,Use of Upper Extremities Equipment Transfer Assistive Device None,Gait Belt Orthotic/Prosthetic Devices or Brace: Yes Transfers Transfer Destination Toilet Transfer Technique ambulated Transfer Ability Level of Assist Contact Guard Assistance,1 Person Assistance,Use of Upper Extremities Comments Mobility Comments BP in supine: 132/74 KS: 90 bpm. spouse in room. reviewed shoulder precautions with pt and spouse. pt completed supine to sit SBA and cues for techniques. pt able to sit on EOB SBA. pt without c/o dizziness. educated spouse on sling management. pt completed elbow/hand/wrist exercises and attemped pendulum exercises but unable to do pendulum correctly. pt requested to use the toilet. ambulated without AD CGA and completed toileting CGA. pt ambulated towards the sink without AD and completed CGA. able to maintain standing while doing handwashing CGa. pt ambulated to chair and rested. educated spouse regarding sling management. Pt c/o dizziness. BP checked: 96/37 KS: 54. reclined pt on the chair. BP checked: 103/41 KS 56. Nurse informed. pt unable to tolerate further activities. caregiver training set up again at 9 am tomorrow with spouse to asssit. Gait Assessment Gait Gait Assistance Required: Contact Guard Assist Distance (Feet) 10 Able to Maintain Weight Bearing Status Yes During Gait Assistive Devices Assistive Device None,Gait Belt Orthotic/Prosthetic Devices or Brace: Yes Gait Deviations General Gait Pattern Antalgic,Decreased Stride Length,Decreased Feet Clearance Factors Limiting Gait Function Factors Limiting Gait Function Decreased Activity Tolerance, Decreased Strength,Difficulty Following Directions, Incoordination,Limited Range of Motion,Pain,Poor Balance, Poor Safety Awareness M5 PT-IP Objective Assessments Start: 06/19/22 12:47 Freq: NEEDED Status: Active Protocol: Document 06/19/22 09:51 AB (Rec: 06/19/22 12:58 AB [email or web address]) Orientation Orientation/Cognition Level of Alertness Alert Orientation Name,Place,Situation Language Function Ability No Deficits Noted Safety Awareness Decreased Safety Awareness Memory Description Short Term Impaired Gross Range of Motion Lower Extremity ROM Assessment Within Functional Limits Strength Lower Extremity Strength Assessment Within Functional Limits Muscle Tone Muscle Tone WNL Yes M6 PT-IP Treatment Start: 06/19/22 12:47 Freq: NEEDED Status: Active Protocol: Document 06/19/22 13:40 AB (Rec: 06/19/22 16:55 AB [email or web address]) Physical Therapy Treatment Exercises Exercises Shoulder Pendulums,Elbow Flexion/Extension,Wrist ROM, Hand ROM Education Education Provided Precautions,Weight Bearing Status,Safety M7 PT-IP Assessment and Plan Start: 06/19/22 12:47 Freq: NEEDED Status: Active Protocol: Document 06/19/22 13:40 AB (Rec: 06/19/22 16:55 AB [id number]) PT Summary Assessment and Plan Potential Rehabilitation Potential Fair Summary Impairments Pain,ROM,Strength,Balance, Coordination,Sensation,Tone, Cognition,Bed Mobility, Transfers,Gait,Activity Tolerance Progress Towards Goals Slow Progress due to Medical Issues,Slow Progress due to Activity Tolerance Assessment Summary pt requiring CGA with mobility but unable to tolerate much activity with decrease in BP from 132/74 to 96/37. due to this caregiver training not fully completed and requiring further training. set up another caregiver training for tomorrow at 9 am. will continue to assess progress. Goals Bed Mobility Goal Independent Transfer Goal Independent Gait Goal Independent Gait Distance 200 Days to Meet Goals 10 Frequency of Treatment Frequency Of Treatment Twice a Day Treatment Plan Physical Therapy Treatment Plan Bed Mobility Training,Transfer Training,Gait Training, Therapeutic Exercise,Balance Retraining,Post Op Education, Discharge Planning,Hot or Cold Pack,Neuromuscular Re-ed, Coordination Retraining,Manual Therapy Precautions Shoulder Precautions Sling,PROM,Internal Rotation to Body,No External Rotation, No Abduction,Forward Flexion to 90 degrees,Pendulums Weight Bearing Status Weight Bearing Status Non-Weight Bearing Allowed Weight Bearing Amount (enter % LUE NWB or #) (%) Recommendations To Nursing Amount of Assist Needed 1 Person Assist Discharge Recommendations PT Discharge Recommendations Home with Assistance, Outpatient PT Transportation Needs at Discharge Private Vehicle,Wheelchair/ Cabulance
--- NOTE | 2022-06-19 16:41 | PC.NURSE ---
Addendum entered by Kelley Khoury R.N. 06/19/22 16:58: Fluids restarted per KYLIE Johnson, and discharge order canceled for today. Original Note: While working with PT this am, patient experienced an episode of hypotension accompanied by diaphoresis and pallor. At this time, patient was unable to complete therapy adequate for discharge and PT stated she would try again in the afternoon. BP recovered quickly. Patient states that he thinks the hypotension was caused by pain. Medication regimen discussed with KYLIE Robin. Tramadol QID added to MAR and per patient, more effective than other medications for pain control. During PT session in afternoon, patient was able to proceed further with activities but still unable to complete caregiver training due to anther hypotensive episode. Again BP recovered quickly and PRN medication administered for pain control.
[2022-06-19 17:36] VITALS: BP 118/62; PULSE 84; RESP 16; TEMP 36.2; O2SAT 94
[2022-06-19 20:20] VITALS: BP 143/75; PULSE 77; RESP 17; TEMP 36.6; O2SAT 94
[2022-06-19] MEDS: ATORVASTATIN 20 MG TABLET 10 MG PO (20:30)
[2022-06-19] MEDS: TAMSULOSIN 0.4 MG CAPSULE PO (20:30)
[2022-06-20 05:51] VITALS: BP 113/58; PULSE 86; RESP 16; TEMP 36.5; O2SAT 92
[2022-06-20] MEDS: TRAMADOL 50 MG TABLET PO ×2 (05:51→09:10)
[2022-06-20] MEDS: ACETAMINOPHEN 325 MG TABLET 650 MG PO (05:51)
[2022-06-20] MEDS: PANTOPRAZOLE DR 20 MG TABLET PO (05:51)
--- NOTE | 2022-06-20 07:16 | PM.PNPO.1 ---
Subjective Subjective Date Patient Seen: 06/20/22 Time Patient Seen: 07:16 Interval history: Patient states he has significant pain yesterday and did not pass physical therapy. Patient is monitored throughout the day. Patient states he has quite a bit better this morning. Pain is [id number]. No fever or chills. No nausea or vomiting. Patient states his is home and available to assist him. Patient states he has wanting to go home today if safe for home environment. Exam Vital Signs (past 8 hours): - 06/20/22 05:51 Temperature 97.7 F Pulse Rate 86 Respiratory Rate 16 Blood Pressure 113/58 L Pulse Oximetry 92 Oxygen Flow Rate 0 Oxygen Delivery Method Room Air Oxygen Flow Rate 0 Narrative Exam Narrative: 76-year-old male resting comfortably in bed in no apparent distress. Left shoulder dressing is Clean, dry, intact.. Motor functions intact distally. Sensation grossly intact to light touch. Fingers are warm and dry. 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 HLD (hyperlipidemia) Left humeral fracture Osteoarthritis Spondylolisthesis at L4-L5 level Surgical History H/O Achilles tendon repair History of arthroscopy of right shoulder History of right hip replacement Hx of bilateral cataract extraction Hx of eye surgery Hx of hernia repair Hx of tonsillectomy Family History Father TIA (transient ischemic attack) Social History household members: spouse Smoking Status: Former smoker alcohol intake: current Assessment & Plan Post-op Postoperative Procedures: Procedures Operation Date: 06/18/22 11:00 Actual Procedure Side Surgeon p Total Shoulder Arthroplasty Left Troy Shirley MD Postoperative day: 2 Postoperative status: doing well Postoperative plan: routine post-op care Postoperative plan narrative: Multimodal pain management Mobilize with physical therapy Discharge home today after physical therapy if safe for home environment.
[2022-06-20 08:50] VITALS: BP 131/62; PULSE 66; RESP 18; TEMP 36.2; O2SAT 95
--- NOTE | 2022-06-20 09:05 | PT.IPTN ---
Current Diagnoses Primary osteoarthritis, left shoulder (06/18/22) Surgery Performed Operation Date: 06/18/22 11:00 Actual Procedures p Total Shoulder Arthroplasty(Left) - Troy Shirley MD Physical Therapy Treatment Note M2 PT-IP Current Condition Start: 06/19/22 12:47 Freq: NEEDED Status: Discharge Protocol: Document 06/19/22 09:51 AB (Rec: 06/19/22 12:58 AB [id number]) Physical Therapy Current Condition Current Condition Evaluation Date 06/19/22 Treatment Diagnosis s/p L TSA; difficulty in walking Onset Date 06/18/22 M3 PT-IP Subjective Start: 06/19/22 12:47 Freq: NEEDED Status: Discharge Protocol: Document 06/20/22 09:05 AB (Rec: 06/20/22 12:48 AB [email or web address]) Subjective Physical Therapy Visit Type Type Treatment Note Visit Start Time 09:05 Visit Stop Time 09:35 Total Visit Minutes 30 Number of HOSPICE VOLUNTEER COORDINATOR Visits 0 Therapy Pain Assessment Pain When Pain Assessed At Rest Location left shoulder Intensity 3 Scale Used Numeric (0 - 10) Pain Management Techniques Distraction,Modification of Treatment,Re-positioning, Timing of Activity with Medications M4 PT-IP Mobility and Gait Start: 06/19/22 12:47 Freq: NEEDED Status: Discharge Protocol: Document 06/20/22 09:05 AB (Rec: 06/20/22 12:48 AB [email or web address]) PT-Transfer Assessment Sit to and From Stand Sit to and from Stand Contact Guard Assistance,1 Person Assistance,Use of Upper Extremities Equipment Transfer Assistive Device None,Gait Belt Orthotic/Prosthetic Devices or Brace: Yes Transfer Ability Level of Assist Contact Guard Assistance,1 Person Assistance,Use of Upper Extremities Comments Mobility Comments pt sitting on the chair. stated that he will sleep on his recliner and does not want to do bed mobility training. caregiver training conducted. spouse was able to manage sling for pt. pt completed elbow/wrist/hand exercises. educated spouse on safety belt use and how to assist pt and spouse was able to put safety belt on pt. assisted pt with sit to stand and ambulation in room without AD CGA. pt sat back on the chair. call light and table placed within reach . pt and spouse without further concerns. Gait Assessment Gait Gait Assistance Required: Contact Guard Assist,1 Person Assist Distance (Feet) 35 Able to Maintain Weight Bearing Status Yes During Gait Assistive Devices Assistive Device None,Gait Belt Orthotic/Prosthetic Devices or Brace: Yes Gait Deviations General Gait Pattern Ataxic,Decreased Stride Length ,Decreased Feet Clearance,Step -to Gait,Wide Based Gait Factors Limiting Gait Function Factors Limiting Gait Function Decreased Activity Tolerance, Decreased Strength,Limited Range of Motion,Pain,Poor Balance,Poor Safety Awareness M5 PT-IP Objective Assessments Start: 06/19/22 12:47 Freq: NEEDED Status: Discharge Protocol: Document 06/19/22 09:51 AB (Rec: 06/19/22 12:58 AB [email or web address]) Orientation Orientation/Cognition Level of Alertness Alert Orientation Name,Place,Situation Language Function Ability No Deficits Noted Safety Awareness Decreased Safety Awareness Memory Description Short Term Impaired Gross Range of Motion Lower Extremity ROM Assessment Within Functional Limits Strength Lower Extremity Strength Assessment Within Functional Limits Muscle Tone Muscle Tone WNL Yes M6 PT-IP Treatment Start: 06/19/22 12:47 Freq: NEEDED Status: Discharge Protocol: Document 06/20/22 09:05 AB (Rec: 06/20/22 12:48 AB [email or web address]) Physical Therapy Treatment Exercises Exercises Elbow Flexion/Extension,Wrist ROM,Hand ROM Education Education Provided Precautions,Safety M7 PT-IP Assessment and Plan Start: 06/19/22 12:47 Freq: NEEDED Status: Discharge Protocol: Document 06/20/22 09:05 AB (Rec: 06/20/22 12:48 AB [email or web address]) PT Summary Assessment and Plan Potential Rehabilitation Potential Good Summary Impairments Pain,ROM,Strength,Balance, Coordination,Sensation,Tone, Cognition,Bed Mobility, Transfers,Gait,Activity Tolerance Progress Towards Goals Slow Progress due to Pain Assessment Summary caregiver training conducted and spouse is able to assist pt with mobility. pt may go home when medically stable Goals Bed Mobility Goal Independent Transfer Goal Independent Gait Goal Independent Gait Distance 200 Days to Meet Goals 10 Frequency of Treatment Frequency Of Treatment Twice a Day Treatment Plan Physical Therapy Treatment Plan Bed Mobility Training,Transfer Training,Gait Training, Therapeutic Exercise,Balance Retraining,Post Op Education, Discharge Planning,Hot or Cold Pack,Neuromuscular Re-ed, Coordination Retraining,Manual Therapy Precautions Shoulder Precautions Sling,PROM,Internal Rotation to Body,No External Rotation, No Abduction,Forward Flexion to 90 degrees,Pendulums Weight Bearing Status Weight Bearing Status Non-Weight Bearing Allowed Weight Bearing Amount (enter % LUE NWB or #) (%) Recommendations To Nursing Amount of Assist Needed 1 Person Assist Discharge Recommendations PT Discharge Recommendations Home with Assistance, Outpatient PT Transportation Needs at Discharge Private Vehicle,Wheelchair/ Cabulance
[2022-06-20] MEDS: ONDANSETRON 4 MG ODT PO (09:09)
[2022-06-20] MEDS: SODIUM CHLORIDE 0.9% FLUSH 10 ML IV (09:10)
[2022-06-20] MEDS: polyethylene glycoL 3350 17 GM POWD.PACK PO (09:10)
[2022-06-20] MEDS: DOCUSATE 100 MG CAPSULE PO (09:10)
[2022-06-20] MEDS: CHOLECALCIFEROL (VITAMIN D3) 1,000 UNIT TABLET 2000 UNIT PO (09:10)
[2022-06-20] MEDS: CELECOXIB 200 MG CAPSULE PO (09:10)
[2022-06-20] MEDS: ASPIRIN EC 81 MG TABLET PO (09:10)
== END 2022-06-20 10:17 | disposition home or self-care (01) ==
LOC: OR 09:00 → AC 09:01
PROVIDERS: PCP Internal Medicine; Referring Provider Orthopaedic Surgery; Visit Provider Orthopaedic Surgery
PROC: (CPT 23472; principal; 2022-06-18 11:00)
DX: M19.012 Primary osteoarthritis, left shoulder (principal); M25.712 Osteophyte, left shoulder; D50.0 Iron deficiency anemia secondary to blood loss (chronic)
CPT/HCPCS: 23472; 36415; 64450; 73020; 85014; 85018; 97110; 97162; 97530; C1776; J0690; J1170; J3010

== ENCOUNTER → 2023-12-09 09:46 | Outpatient (CLI) | payer OTHER, SELFPAY ==
[2022-09-29 14:50] VITALS: BMI 30.9
--- NOTE | 2023-12-09 09:49 | DI.NM.S_ITS ---
PROCEDURE: IN BONE SCAN WHOLE BODY RADIOPHARMACEUTICAL: 20 mCi Tc-99m MDP IV. INDICATIONS: Presence of right artificial hip joint TECHNIQUE: Delayed whole-body scintigrams were obtained approximately 3-4 hours after intravenous injection of radiotracer. Anterior and posterior views were acquired from vertex to feet. Additional left and right oblique views of the pelvis were obtained. COMPARISON: [facility] [place], [place], XR PELVIS WITH LATERAL HIP RIGHT, 05/20/2023, 13:38. [place], [place], IN BONE SCAN WHOLE BODY, 02/22/2019, 13:03. FINDINGS: Radiotracer excretion is seen in the urinary system. Right hip arthroplasty changes, with mild persistent uptake surrounding the hardware. Possible hardware also seen in the left shoulder. Scattered degenerative changes in the upper and lower extremities and spine. No focal suspicious uptake. More focal uptake, also likely degenerative, seen at the lumbosacral junction and cervical spine. IMPRESSION: Right hip arthroplasty changes, with similar mild uptake surrounding the hardware. If there is further concern, consider 3 phase imaging. Dictated by: Adam Gilman M.D. on 12/09/2023 at 16:04 Approved by: Adam Gilman M.D. on 12/09/2023 at 16:08
== END ==
LOC: NUCM 09:47
PROVIDERS: PCP Internal Medicine; Referring Provider Internal Medicine; Visit Provider Internal Medicine
DX: M25.551 Pain in right hip (principal); Z96.641 Presence of right artificial hip joint
CPT/HCPCS: 78306; A9503

== ENCOUNTER → 2024-01-08 11:12 | Outpatient (CLI) | payer OTHER, SELFPAY ==
[2022-09-29 14:50] VITALS: BMI 30.9
--- NOTE | 2024-01-08 | DI.MRI.S_ITS ---
PROCEDURE: MR HIP RT WO CON INDICATIONS: presence of artificial hip joint, Right HIP TENDONITIS TECHNIQUE: Noncontrast coronal T1 spin echo and STIR through the bony pelvis. Coronal and axial T2 fast spin echo with fat saturation, sagittal T1 spin echo, and oblique axial T2 fast spin echo with fat saturation through the hip. COMPARISON: [facility] [place], [place], XR PELVIS WITH LATERAL HIP RIGHT, 12/16/2023, 16:07. FINDINGS: Image quality: Excellent Bones: The visualized lower lumbar spine, sacrum, bilateral posterior iliac wing demonstrate normal marrow signal. Lower lumbar facet arthropathy. Status post right hip arthroplasty, creating artifacts, and limits evaluation. The left hip is well aligned. No acute fracture or dislocation of the left hip. No significant degenerative changes of the left hip. Right hip: The right iliopsoas, adductor, and hamstring tendons are unremarkable. The right gluteal minimus tendons is unremarkable. Low-grade tear of the right gluteal medius. Other soft tissue findings: Hypertrophic nodules are seen in the prostate. There is a 1.9 cm T2 hyperintense nodule in the subcutaneous fat of the left buttock, nonspecific. IMPRESSION: Status post right hip arthroplasty. Low-grade tear of the right gluteal medius at the greater trochanter insertion. Dictated by: Jacki Haley M.D. on 01/08/2024 at 20:17 Approved by: Jacki Haley M.D. on 01/08/2024 at 20:25
== END ==
PROVIDERS: PCP Internal Medicine; Referring Provider Orthopaedic Surgery; Visit Provider Orthopaedic Surgery
DX: S76.011A Strain of muscle, fascia and tendon of right hip, initial encounter (principal); M76.891 Other specified enthesopathies of right lower limb, excluding foot; Z96.641 Presence of right artificial hip joint
CPT/HCPCS: 73721

== ENCOUNTER 2024-02-09 14:17 | Outpatient (CLI) | payer OTHER, SELFPAY ==
[2022-09-29 14:50] VITALS: BMI 30.9
[2024-02-09] VITALS (10 sets, daily range): BP systolic 118–141; BP diastolic 58–90; PULSE 68–85; RESP 10–20; TEMP 36.6; O2SAT 93–98
--- NOTE | 2024-02-09 15:00 | DI.RAD.S_ITS ---
PROCEDURE: PAIN L/S FACET INJ/BLK 1ST JERI INDICATIONS: Bilateral L3-L4 and L5 medial branch block LA COMPARISON: None. FINDINGS: Fluoroscopic spot filming was performed to verify placement of spinal needles at the L3 through L5 level(s), as labeled on the films. Appropriate location(s) of the needle tip(s) was confirmed by injection of iodinated contrast. IMPRESSION: L3 through L5 needle and contrast placement bilaterally. Dictated by: Eunice Marti M.D. on 02/09/2024 at 20:55 Approved by: Eunice Marti M.D. on 02/09/2024 at 20:55
[2024-02-09] MEDS: MIDAZOLAM 2 MG/2 ML VIAL IV (15:39)
[2024-02-09] MEDS: iopamidoL 15 ML VIAL 3 ML INJ (15:44)
[2024-02-09] MEDS: BUPIVACAINE 0.5% (PF) 10 ML VIAL 5 ML INJ (15:44)
[2024-02-09] MEDS: LIDOCAINE 1% 20 ML 5 ML INJ (15:44)
[2024-02-09] MEDS: MIDAZOLAM 2 MG/2 ML VIAL 1 MG IV ×2 (15:49→15:53)
--- NOTE | 2024-02-09 16:02 | PM.PROC.IR.1 ---
Date/Time/Diagnoses Date of procedure: 02/09/24 Time of procedure: 16:02 Pre-procedure diagnosis: FACET ARTHROPATHY Post-procedure diagnosis: same Procedure Notes Procedure: 1. BILATERAL L3, L4 AND L5 DIAGNOSTIC MB BLOCKS Indications: Arthus is referred by Dr. Horan for treatment of Bilateral Axial LBP. Physician: Emmanuel Dean Total Fluoroscopy time (seconds): 14 Total sedation minutes: 18 Complications: none Procedure in detail & Post-procedure care: DESCRIPTION OF PROCEDURE Fluoroscopically guided, contrast-controlled bilateral L3, L4 AND L5 medial branch blocks with 0.5cc of 0.5% Marcaine. Following review of allergy and review of potential side effects and complications, including, but not necessarily limited to, infection, allergic reaction, local tissue breakdown, nerve injury, paralysis, stroke and possible , the patient indicated that the patient understood and agreed to proceed. An informed consent document was signed by the patient, witnessed by a nurse, and placed in the patient's chart. After review of previous anaesthesic history and IV conscious sedation the patient was deemed safe to proceed with today's procedure with IV conscious sedation as ASA class II designation. Safety time-out was performed to confirm patient ID, procedure to be performed and site of procedure. IV sedation was accomplished with a combination of 4mg of Versed was administered by the RN after DO order, titrated to patient comfort during the course of the procedure while the patient remained responsive to all verbal commands In the prone position, following sterile prep and drape of the lumbar region, the right L3, L4 AND L5 anatomical location of the medial branch of the dorsal ramus was identified fluoroscopically. Subsequently an anesthetic skin wheal using 1% lidocaine solution was initiated at each of the anatomical spots. Subsequently then a 22-gauge 3.5-inch spinal needle was atraumatically introduced and advanced under fluoroscopic guidance at each of the corresponding sites at the right L3, L4 and L5 MB. After negative aspiration, 0.2cc of Isovue 200 was injected, confirming placement without vascular or intrathecal uptake. Subsequently then 0.5cc of 0.5% Marcaine solution was injected at each of the corresponding sites at the right L3, L4 and L5 medial branch locations. The identical procedure was replicated on the left. The patient tolerated the procedure well without signs or symptoms of complications. The patient tolerated the procedure well without signs or symptoms of complications prior to transfer to the recovery area continued monitoring without incident. Post-procedure, the patient was monitored initiating provocative activities to measure the amount of relief from block of the facetogenic pain. The patient reported a VAS of 7 prior to the procedure and a post-procedure VAS of 1. It has been a pleasure to assist in the diagnostic and therapeutic care of your patient. POST OP INSTRUCTIONS The patient was provided with a Pain Log to complete over the next several hours and subsequent days prior to the patient's follow up with the ordering physician. 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 The patient is aware, was provided, once again, with a Pain Log and will follow up with the referring physician for review and clinical correlation
== END 2024-02-09 14:35 | disposition home or self-care (01) ==
LOC: RAD 14:17
PROVIDERS: PCP Internal Medicine; Referring Provider Physical Medicine & Rehabilitation; Visit Provider Physical Medicine & Rehabilitation
DX: M47.816 Spondylosis without myelopathy or radiculopathy, lumbar region (principal)
CPT/HCPCS: 64493; 64494; 99152; J2250

== ENCOUNTER 2024-03-22 10:09 | Outpatient (CLI) | payer OTHER, SELFPAY ==
[2022-09-29 14:50] VITALS: BMI 30.9
[2024-03-22] VITALS (9 sets, daily range): BP systolic 113–148; BP diastolic 57–83; PULSE 59–72; RESP 12–19; TEMP 36.2; O2SAT 94–98
--- NOTE | 2024-03-22 10:27 | P.PCN_ITS ---
Date/Time/Diagnoses Date of procedure: 03/22/24 Time of procedure: 11:38 Pre-procedure diagnosis: 1. FACET ARTHROPATHY Post-procedure diagnosis: same Procedure Notes Procedure: 1. BILATERAL L3, L4 AND L5 DIAGNOSTIC MB BLOCKS Indications: Jamar is referred by Dr. Horan for treatment of Bilateral Axial LBP. Physician: Emmanuel Dean Total Fluoroscopy time (seconds): 15 Total sedation minutes: 20 Complications: none Procedure in detail & Post-procedure care: DESCRIPTION OF PROCEDURE Fluoroscopically guided, contrast-controlled bilateral L3, L4 AND L5 medial branch blocks with 0.5cc of 2% Lidocaine. Following review of allergy and review of potential side effects and complications, including, but not necessarily limited to, infection, allergic reaction, local tissue breakdown, nerve injury, paralysis, stroke and possible , the patient indicated that the patient understood and agreed to proceed. An informed consent document was signed by the patient, witnessed by a nurse, and placed in the patient's chart. After review of previous anaesthesic history and IV conscious sedation the patient was deemed safe to proceed with today's procedure with IV conscious sedation as ASA class II designation. Safety time-out was performed to confirm patient ID, procedure to be performed and site of procedure. IV sedation was accomplished with a combination of 2mg of Versed was administered by the RN after DO order, titrated to patient comfort during the course of the procedure while the patient remained responsive to all verbal commands In the prone position, following sterile prep and drape of the lumbar region, the right L3, L4 AND L5 anatomical location of the medial branch of the dorsal ramus was identified fluoroscopically. Subsequently an anesthetic skin wheal using 1% lidocaine solution was initiated at each of the anatomical spots. Subsequently then a 22-gauge 3.5-inch spinal needle was atraumatically introduced and advanced under fluoroscopic guidance at each of the corresponding sites at the right L3, L4 and L5 MB. After negative aspiration, 0.2cc of Isovue 200 was injected, confirming placement without vascular or intrathecal uptake. Subsequently then 0.5cc of 2% Lidocaine solution was injected at each of the corresponding sites at the right L3, L4 and L5 medial branch locations. The identical procedure was replicated on the left. The patient tolerated the p rocedure well without signs or symptoms of complications. The patient tolerated the procedure well without signs or symptoms of complications prior to transfer to the recovery area continued monitoring without incident. Post-procedure, the patient was monitored initiating provocative activities to measure the amount of relief from block of the facetogenic pain. The patient reported a VAS of 7 prior to the procedure and a post-procedure VAS of 1. It has been a pleasure to assist in the diagnostic and therapeutic care of your patient. POST OP INSTRUCTIONS The patient was provided with a Pain Log to complete over the next several hours and subsequent days prior to the patient's follow up with the ordering physician. 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 The patient is aware, was provided, once again, with a Pain Log and will follow up with the referring physician for review and clinical correlation
--- NOTE | 2024-03-22 10:45 | DI.RAD.S_ITS ---
PROCEDURE: PAIN L/S FACET INJ/BLK 1ST JERI INDICATIONS: SPONDYLOSIS COMPARISON: [facility], , PAIN L/S FACET INJ/BLK 1ST JERI, 02/09/2024, 15:43. FINDINGS: Fluoroscopic spot filming was performed to verify placement of spinal needles at the L3, L4 and L5 level(s), as labeled on the films. Contrast was injected at these levels. IMPRESSION: Spinal needles at the L3, L4 and L5 levels. Please see procedure report for details. Dictated by: Shahid Woods M.D. on 03/22/2024 at 17:04 Approved by: Shahid Woods M.D. on 03/22/2024 at 17:05
[2024-03-22] MEDS: MIDAZOLAM 2 MG/2 ML VIAL IV ×2 (11:15→11:21)
[2024-03-22] MEDS: LIDOCAINE 2% INJ MDV 20ML 5 ML INJ (11:18)
[2024-03-22] MEDS: iopamidoL 15 ML VIAL 3 ML INJ (11:18)
[2024-03-22] MEDS: LIDOCAINE 1% 20 ML 5 ML INJ (11:18)
== END 2024-03-22 11:54 | disposition home or self-care (01) ==
LOC: RAD 10:10
PROVIDERS: PCP Internal Medicine; Referring Provider Physical Medicine & Rehabilitation; Visit Provider Physical Medicine & Rehabilitation
DX: M47.816 Spondylosis without myelopathy or radiculopathy, lumbar region (principal)
CPT/HCPCS: 64493; 64494; 99152; J2250

== ENCOUNTER → 2024-04-13 14:31 | Outpatient (CLI) | payer OTHER, SELFPAY ==
[2022-09-29 14:50] VITALS: BMI 30.9
--- NOTE | 2024-04-13 14:33 | EKG_ITS ---
[address] [address] Test Date: 2024-04-13 Pat Name: Jamar Fernandez Department: [facility] Room: Gender: Male Cook Starch: SERGIO : 1945 Requested By: Order Number: [id number] Reading MD: Scott Olivera Measurements Intervals Dana Rate: 63 P: 0 ND: 180 QRS: 20 QRSD: 84 T: 45 QT: 416 QTc: 425 Interpretive Statements Normal sinus rhythm Electronically Signed On 04-13-2024 17:35:44 PDT by Scott Olivera
[2024-04-13 15:02] LABS: Add Manual Diff / Slide Review NO; Basophils Absolute Auto 0 /uL (0-100); Basophils Percent Auto 0.5 % (0-2); Eosinophils Absolute Auto 0 /uL (0-450); Eosinophils Percent Auto 0.5 % (2-4); Hematocrit 41.8 % (41-53); Hemoglobin 14.5 g/dL (13.5-17.5); Lymphocytes Absolute Auto 1100 /uL (1100-4500); Lymphocytes Percent Auto 23.1 % (25-40); Mean Corpuscular HGB Conc 34.8 % (30-36); Mean Corpuscular Hemoglobin 30.4 PG (26-34); Mean Corpuscular Volume 87.4 fL (80-100); Monocytes Absolute Auto 400 /uL (0-900); Monocytes Percent Auto 8.6 % (3-14); Neutrophils Absolute Auto 3100 /uL (1500-7000); Neutrophils Percent Auto 67.3 % (50-75); Platelet Count 239 X10^3/uL (150-400); Red Blood Cell Count 4.78 X10^6/uL (4.5-5.9); Red Cell Distribution Width 13.9 % (11.6-14.8); White Blood Cell Count 4.7 X10^3/uL (4.5-11.0)
[2024-04-13 15:06] LABS: Appearance Urine UA CLEAR; Bilirubin Urine UA NEGATIVE (NEGATIVE); Color Urine UA YELLOW; Glucose Urine UA NEGATIVE (Negative); Ketones Urine UA NEGATIVE (NEGATIVE); Leukocyte Esterase Urine UA NEGATIVE (NEGATIVE); Nitrite Urine UA NEGATIVE (Negative); Occult Blood Urine UA NEGATIVE (Negative); Protein Urine UA NEGATIVE (Negative); Specific Gravity Urine UA <=1.005 (1.000-1.035); Urobilinogen Urine UA 0.2 E.U./dL (0.2)
[2024-04-13 15:11] LABS: Hemoglobin A1C% w Est Avg Glu 4.9 % (4.0-6.0)
[2024-04-13 15:21] LABS: Bacteria Urine None Seen; Culture Indicated Urine Cult Not Indicated; RBC Urine None Seen (0-5/HPF); Squamous Epithelial Cell Urine None Seen (0-5/HPF); Urine Volume 10mL (spun); WBC Urine None Seen (0-5/HPF)
[2024-04-13 15:22] LABS: BUN Creatinine Ratio 17.9 (6-22); Blood Urea Nitrogen 19 mg/dL (9-20); Calcium 9.1 mg/dL (8.4-10.2); Carbon Dioxide 25 mmol/L (22-32); Chloride 107 mmol/L (98-107); Estimated Glomerular Filt Rate > 60 mL/min (>60); Glucose 97 mg/dL (80-110); HEMOLYSIS < 15 (0-50); Potassium 4.5 mmol/L (3.4-5.1); Sodium 139 mmol/L (137-145)
== END ==
LOC: LAB 14:32
PROVIDERS: PCP Internal Medicine; Referring Provider Orthopaedic Surgery; Visit Provider Orthopaedic Surgery
DX: Z01.818 Encounter for other preprocedural examination (principal); R73.9 Hyperglycemia, unspecified; Z01.812 Encounter for preprocedural laboratory examination; N39.0 Urinary tract infection, site not specified
CPT/HCPCS: 36415; 80048; 81001; 83036; 85025; 93005

== ENCOUNTER 2024-05-31 10:19 | Outpatient (CLI) | payer OTHER, SELFPAY ==
[2022-09-29 14:50] VITALS: BMI 30.9
[2024-05-31] VITALS (24 sets, daily range): BP systolic 62–142; BP diastolic 34–69; PULSE 39–77; RESP 13–23; TEMP 36.2; O2SAT 94–98
--- NOTE | 2024-05-31 11:00 | DI.RAD.S_ITS ---
PROCEDURE: PAIN L/S MED/LAT N RFA BILAT INDICATIONS: Bilateral L3-L4 and L5 medial branch RFA COMPARISON: None. FINDINGS: Fluoroscopic spot filming was performed to verify placement of spinal needles at the bilateral L3, L4, and L5 levels, as labeled on the films. Appropriate locations of the needle tips were confirmed by injection of iodinated contrast. IMPRESSION: Intraprocedural examination demonstrates appropriate needle positioning. Approved by: Martin Clinton M.D. on 05/31/2024 at 21:40
[2024-05-31] MEDS: fentaNYL 100 MCG/2 ML INJ 25 MCG IV ×4 (11:19→12:00)
[2024-05-31] MEDS: MIDAZOLAM 2 MG/2 ML VIAL 1 MG IV (11:19)
[2024-05-31] MEDS: BUPIVACAINE 0.5% (PF) 10 ML VIAL 5 ML INJ (11:24)
[2024-05-31] MEDS: LIDOCAINE 1% 20 ML 5 ML INJ (11:24)
[2024-05-31] MEDS: MIDAZOLAM 5 MG/ML VIAL 1 MG IV (11:30)
--- NOTE | 2024-05-31 12:17 | P.PCN_ITS ---
Date/Time/Diagnoses Date of procedure: 05/31/24 Time of procedure: 12:17 Pre-procedure diagnosis: 1. RECALCITRANT FACET ARTHROPATHY Post-procedure diagnosis: same Procedure Notes Procedure: 1. BILATERAL L3, L4 AND L5 MEDIAL BRANCH RADIOFREQUENCY NEUROTOMY Indications: Jamar is referred by Dr. Horan for treatment of facet arthropathy. Physician: Emmanuel Dean Total Fluoroscopy time (seconds): 23 Total sedation minutes: 45 Complications: none Procedure in detail & Post-procedure care: DESCRIPTION OF PROCEDURE Bilateral L3, L4 and L5 medial branch radiofrequency neurotomy The patient is well known to this clinic having undergone previous facet injections with good but temporary relief. The patient has experienced appropriate, concordant relief with previous facet and median branch blocks but the patient's pain has been recalcitrant to further conservative measures. Therefore, based upon the patient's relief and persistent symptoms, the patient is considered an appropriate candidate for facet rhizotomy. All of the patient's questions regarding the risks versus benefits of the procedure, including, but not limited to, bleeding, infection, temporary as well as lasting nerve injury, paralysis, stroke, and , as well treatment alternatives were answered to satisfaction. After obtaining informed consent, denial of pertinent drug allergies, as well as being made aware of the potential risks of bleeding, infection, spinal cord trauma, paralysis, temporary and permanent nerve damage, seizure, stroke, and possible , the patient was brought to the fluoroscopy suite and positioned prone on the fluoroscopy table. After review of previous anaesthesic history and IV conscious sedation the patient was deemed safe to proceed with today's procedure with IV conscious sedation as ASA class II designation. Safety time-out was performed to confirm patient ID, procedure to be performed and site of procedure. IV sedation was accomplished with a combination of 2mg of Versed and 100mcg of Fentanyl administered by the RN after DO order, titrated to patient comfort during the course of the procedure while the patient remained responsive to all verbal commands. The lumbar region was prepped in usual sterile fashion and covered with a fenestrated drape in the usual sterile fashion. Appropriate monitors applied including pulse oximeter, pulse, and blood pressure for regular monitoring throughout the procedure. After local infiltration using 1% lidocaine, under fluoroscopic guidance, a 10- cm RF insulated needle with a 10-mm active tip was positioned parallel to the j unction of the right the superior articulating process where the L5 medial branch resides. Needle placement was confirmed with motor stimulation of .5v on the right which produced local stimulation without radicular component. The stimulation was then increased to 2v with, once again, only local multifidus stimulation without radicular component. The needle was then removed and the identical procedure was performed along the length of the right L4 medial branch with motor stimulation at .7v on the right. The identical procedure was once again performed along the length of the right L3 and medial branch with motor stimulation of .5v on the right. The medial branches were then anesthetised with 0.5% marcaine. This was then followed by two discreet lesions performed at 80 degrees Celsius for 90 seconds each. The identical procedures were repeated on the left. The patient tolerated the procedure well without signs or symptoms of complications prior to transfer to the recovery area continued monitoring without incident. The patient was then transferred to the recovery area where they were observed for an appropriate period of time after the injection. The patient reported a VAS score of 9 prior to the procedure and a post-procedure VAS of 0. POST OP INSTRUCTIONS The patient was provided a Pain Log to continue to record the patient's response to the target-specific procedure prior to the patient's follow-up visit with the referring physician. Additionally, specific post-injection care instructions and a contact number to our office were provided if concerns arise regarding possible complications associated with the procedure are suspected.
[2024-05-31] MEDS: ATROPINE 1 MG/10 ML SYRINGE 0.5 MG IV (12:23)
[2024-05-31] MEDS: SODIUM CHLORIDE 0.9% 500 ML 1000 ML IV (12:25)
== END 2024-05-31 13:04 | disposition home or self-care (01) ==
LOC: RAD 10:19
PROVIDERS: PCP Internal Medicine; Referring Provider Physical Medicine & Rehabilitation; Visit Provider Physical Medicine & Rehabilitation
DX: M47.816 Spondylosis without myelopathy or radiculopathy, lumbar region (principal)
CPT/HCPCS: 64635; 64636; 99152; 99153; J0461; J2250; J3010

== ENCOUNTER → 2024-08-26 19:44 | Outpatient (CLI) | payer OTHER, SELFPAY ==
[2022-09-29 14:50] VITALS: BMI 30.9
--- NOTE | 2024-08-26 19:46 | DI.MRI.S_ITS ---
PROCEDURE: MR LUMBAR SPINE WO CON INDICATIONS: Radiculopathy TECHNIQUE: Noncontrast sagittal T1 spin echo and T2 fast echo, sagittal STIR, and T2 fast spin echo through the lumbar spine. In cases with scoliosis, additional coronal T2 fast spin echo may be performed. COMPARISON: [facility], NM, NM BONE SCAN WHOLE BODY, 12/09/2023, 13:59. [facility], MR, MR LUMBAR SPINE WO CON, 08/02/2019, 10:04. [facility], RG, MRI L-SPINE W/O CONTRAST, 10/15/2020, 16:50. FINDINGS: Image quality: Excellent. Alignment and Curvature: [id number] levoconvex lumbar scoliosis is seen. There is mild retrolisthesis at L2-L3, with minimal retrolisthesis at L3-L4. Mild grade 1 anterolisthesis is seen at L4-L5. Minimal anterolisthesis is seen at L5-S1. Bone Marrow: Marrow is of normal overall signal. No acute vertebral body compression fractures. Spinal Cord: Conus medullaris terminates at the L1 level. Visualized cord demonstrates normal signal and size. Paraspinous Soft Tissues: No paravertebral masses. T12-L1: The disc height is well-preserved. Loss of disc signal is seen at this level. No significant neural foraminal or central canal narrowing can be seen. Stable from the prior study. L1-L2: Mild loss of disc height is seen. Loss of disc signal is seen. Bridging endplate osteophytes are seen. Mild to moderate disc bulge is seen. Mild facet joint hypertrophy is seen. No neural foraminal narrowing is seen. Minimal central canal narrowing is seen. No significant change from the prior. L2-L3: Moderate loss of disc height is seen. Loss of disc signal is seen. Moderate disc bulge is seen, which is eccentric to the right. There is a right foraminal disc protrusion, as on series 6, image 16. Mild facet joint hypertrophy is seen. There is moderate right-sided and mild left-sided neural foraminal narrowing. No significant central canal narrowing is seen. Stable from the prior study. L3-L4: Moderate loss of disc height is seen. Loss of disc signal is seen. Reactive marrow endplate changes are seen, which demonstrate mixed T1 weighted and T2-weighted signal, and are attributed to a combination of edema and fatty metaplasia (Modic type I and Modic type II changes). Moderate generalized disc bulge is seen. Moderate facet joint hypertrophy is seen. No significant central canal narrowing can be seen. When comparison is made with the prior images, these findings are similar. L4-L5: The disc height is well-preserved. Loss of disc signal is seen at this level. Moderate disc bulge is seen, which is eccentric to the right. There is a right foraminal disc protrusion. Prominent facet hypertrophy can be seen. There is at least moderate bilateral neural foraminal narrowing seen. At least moderate central canal narrowing can be seen. These imaging findings have progressed compared to the prior study. L5-S1: The disc height is well-preserved. Loss of disc signal is seen at this level. Mild generalized disc bulge is seen. There is moderate to prominent facet hypertrophy, right worse than left. There is minimal right-sided and mild to moderate left-sided neural foraminal narrowing. No central canal narrowing is seen. When comparison is made with the prior images, these findings are similar. IMPRESSION: Multiple levels of lumbar spine degenerative change can be seen, which are progressed at L4-L5 compared to 2020. Otherwise, the degenerative changes appear similar. Dictated by: Qamar Solitario M.D. on 08/29/2024 at 10:09 Approved by: Qamar Solitario M.D. on 08/29/2024 at 10:15
== END ==
LOC: MRI 19:45
PROVIDERS: PCP Internal Medicine; Referring Provider Internal Medicine; Visit Provider Internal Medicine
DX: M47.27 Other spondylosis with radiculopathy, lumbosacral region (principal); M47.26 Other spondylosis with radiculopathy, lumbar region; M99.33 Osseous stenosis of neural canal of lumbar region
CPT/HCPCS: 72148

== ENCOUNTER 2024-09-08 14:21 | Outpatient (CLI) | payer OTHER, SELFPAY ==
[2022-09-29 14:50] VITALS: BMI 30.9
[2024-09-08] VITALS (7 sets, daily range): BP systolic 122–143; BP diastolic 68–80; PULSE 71–82; RESP 13–21; TEMP 36.3; O2SAT 93–98
--- NOTE | 2024-09-08 14:22 | DI.RAD.S_ITS ---
PROCEDURE: PAIN SI JOINT INJECTION INDICATIONS: Right SI joint injection COMPARISON: None. FINDINGS/IMPRESSION: Fluoroscopic spot filming was performed to verify placement of spinal needles at the right SI joint, as labeled on the films. Appropriate location(s) of the needle tip(s) was confirmed by injection of iodinated contrast. Dictated by: Porfirio Frank M.D. on 09/09/2024 at 9:41 Approved by: Porfirio Frank M.D. on 09/09/2024 at 9:42
[2024-09-08] MEDS: MIDAZOLAM 2 MG/2 ML VIAL IV (15:40)
[2024-09-08] MEDS: iopamidoL 15 ML VIAL 3 ML INJ (15:44)
[2024-09-08] MEDS: BETAMETHASONE 30 MG/5 ML MDV 12 MG INJ (15:44)
[2024-09-08] MEDS: BUPIVACAINE 0.5% (PF) 10 ML VIAL 2 ML INJ (15:45)
--- NOTE | 2024-09-08 16:00 | PM.PROC.IR.1 ---
Date/Time/Diagnoses Date of procedure: 09/08/24 Time of procedure: 16:00 Pre-procedure diagnosis: Sacroiliac joint pain/DJD Post-procedure diagnosis: same Procedure Notes Procedure: Fluoroscopically guided contrast controlled right sacroiliac joint injection Indications: Jamar is referred by Dr. Horan for treatment of right sacroiliac joint DJD Physician: Emmanuel Dean Total Fluoroscopy time (seconds): 12 Total sedation minutes: 16 Complications: none Procedure in detail & Post-procedure care: DESCRIPTION OF PROCEDURE Fluoroscopically guided, contrast controlled right sacroiliac joint injection Following review of allergies and review of potential side effects and complications, including, but not necessarily limited to, infection, allergic reaction, local tissue breakdown, temporary as well as permanent nerve injury, paralysis, stroke and possible , the patient indicated that they understood and agreed to proceed. An informed consent was signed by the patient, witnessed by a nurse, and placed in the patient's chart. Additionally, other treatment options including modalities, medications, and physical therapy were reviewed with the patient. After review of previous anaesthesic history and IV conscious sedation the patient was deemed safe to proceed with today?s procedure with IV conscious sedation as ASA class II designation. Safety time-out was performed to confirm patient ID, procedure to be performed and site of procedure. IV sedation was accomplished with a combination of 2mg of Versed was administered by the RN after DO order, titrated to patient comfort during the course of the procedure while the patient remained responsive to all verbal commands In the prone position following sterile prep and drape of the pelvic region, the hyper lucency on in the inferior aspect of the sacroiliac joint was identified fluoroscopically the skin was anesthetized be a 25 gauge 1 eventual with approximately 2 cc of 1% lidocaine solution. At this point, a 22 gauge 3 in spinal needle was atraumatically introduced and advanced under fluoroscopic guidance into the inferior aspect of the right sacroiliac joint. Following negative aspiration, approximately 0.3cc of Isovue-300 was injected confirming intra-articular placement without vascular uptake. Radiographic data, including multiple fluoroscopic views of the pelvis, reveals a spinal needle in the sacroiliac joint hyper lucent zone. Subsequent view show flow contrast tear superiorly and inferiorly within the joint capsule without vascular intrathecal uptake. At this point a total of 1cc of 0.5% Marcaine was combined with 1cc of 6 mg of betamethasone was injected without incident. The procedure tolerated the procedure well without signs or symptoms of complications prior to transfer to the recovery area continued monitoring without incident. The patient was then transferred to the recovery area with a bur observed for an appropriate time after the injection. The patient reverted a vas score of 7 prior to the procedure and post-procedure vas of 1. POSTOP INSTRUCTIONS The patient was provided with a pain like to continue to record the patient's response to the target specific procedure prior to the patient's follow-up visit with the referring physician. Additionally, specific post injection care instructions and a contact number to our office were provided if concerns arise regarding the possible complications associated with procedure are suspected.
== END 2024-09-08 16:16 | disposition home or self-care (01) ==
PROVIDERS: PCP Internal Medicine; Referring Provider Physical Medicine & Rehabilitation; Visit Provider Physical Medicine & Rehabilitation
DX: M53.3 Sacrococcygeal disorders, not elsewhere classified (principal); M46.1 Sacroiliitis, not elsewhere classified
CPT/HCPCS: 27096; 99152; J0702; J2250

== ENCOUNTER 2024-12-06 13:00 | Outpatient (CLI) | payer OTHER, SELFPAY ==
[2022-09-29 14:50] VITALS: BMI 30.9
[2024-12-06] VITALS (7 sets, daily range): BP systolic 113–141; BP diastolic 61–73; PULSE 75–85; RESP 14–16; TEMP 36.1; O2SAT 94–98
[2024-12-06] MEDS: MIDAZOLAM 2 MG/2 ML VIAL IV (13:58)
[2024-12-06] MEDS: BETAMETHASONE 30 MG/5 ML MDV 12 MG INJ (14:02)
[2024-12-06] MEDS: iopamidoL 15 ML VIAL 3 ML INJ (14:02)
[2024-12-06] MEDS: DEXAMETHASONE 10 MG/ML VIAL INJ (14:02)
[2024-12-06] MEDS: BUPIVACAINE 0.25% (PF) VIAL 2 ML INJ (14:03)
--- NOTE | 2024-12-06 14:13 | P.PCN_ITS ---
Date/Time/Diagnoses Date of procedure: 12/06/24 Time of procedure: 14:13 Pre-procedure diagnosis: 1. HNP WITH RADICULAR FEATURES, 2. MULTILEVEL CENTRAL STENOSIS, Post-procedure diagnosis: same Procedure Notes Procedure: 1. FLUOROSCOPICALLY GUIDED CONTRAST CONTROLLED INTERLAMINAR EPIDURAL STEROID INJECTION - L3/4 Indications: Jamar is referred for treatment of Bilateral Foraminal Stenosis L>R LE symptoms. Physician: Emmanuel Dean Total Fluoroscopy time (seconds): 9 Total sedation minutes: 11 Complications: none Procedure in detail & Post-procedure care: FINDINGS Multilevel Central Spinal Stenosis with Nerve Root Compression DESCRIPTION OF PROCEDURE Fluoroscopically guided, contrast-controlled L3/4 translaminar epidural steroid injection. Following review of allergy and review of potential side effects and complications, including, but not necessarily limited to, infection, allergic reaction, local tissue breakdown, temporary as well as permanent nerve injury, paralysis, stroke and possible , the patient indicated that the patient understood and agreed to proceed. An informed consent document was signed by the patient, witnessed by a nurse, and placed in the patient's chart. Additionally, other treatment options including modalities, medications, and physical therapy were reviewed with the patient. After review of previous anaesthesic history and IV conscious sedation the patient was deemed safe to proceed with today?s procedure with IV conscious sedation as ASA class II designation. Safety time-out was performed to confirm patient ID, procedure to be performed and site of procedure. IV sedation was accomplished with a combination of 2mg of Versed was administered by the RN after DO order, titrated to patient comfort during the course of the procedure while the patient remained responsive to all verbal commands. In the prone position, following sterile prep and drape of the lumbar region, the L3/4 translaminar space was identified fluoroscopically. The skin was anesthetized via a 25-gauge, 1.5-inch needle with 1% lidocaine solution. At this point, a 22-gauge short bevel spinal needle was atraumatically introduced and advanced under fluoroscopic guidance into the region of the L3/4 translaminar space. Depth was confirmed on lateral view. Radiological data, including multiple fluoroscopic views of the lumbar spine, reveal a spinal needle at the L3/4 translaminar space. Lateral views then show placement of the needle in the epidural space. Subsequent views show contrast material flowing superiorly and inferiorly in the epidural space. No vascular or intrathecal uptake is observed. At this point, using loss of resistance technique with saline and air, the epidural space was entered. This was confirmed following negative aspiration with injection of approximately 1.5 cc of Isovue 200, showing excellent epidural flow without vascular or intrathecal uptake. At this point, 1cc of 1% lidocaine solution combined with 2cc or 10mg of dexamethasone and 6mg of betamethasone was injected without incident. The patient tolerated the procedure well without signs or symptoms of complications prior to transfer to the recovery area continued monitoring without incident. The patient was then transferred to the recovery area where they were observed for an appropriate period of time after the injection. The patient reported a VAS score of 6 prior to the procedure and a post- procedure VAS of 0. POST OP INSTRUCTIONS The patient was provided a Pain Log to continue to record their response to the target-specific procedure prior to follow-up visit with their referring physician. Additionally, specific post-injection care instructions and a contact number to our office were provided if concerns arise regarding possible complications associated with the procedure are suspected.
== END 2024-12-06 14:30 | disposition home or self-care (01) ==
PROVIDERS: Referring Provider Physical Medicine & Rehabilitation; Visit Provider Physical Medicine & Rehabilitation
DX: M51.16 Intervertebral disc disorders with radiculopathy, lumbar region (principal); M48.061 Spinal stenosis, lumbar region without neurogenic claudication
CPT/HCPCS: 62323; 99152; J0702; J1100; J2250; J3490